=== PATIENT | male | born 1985 | race Caucasian/White ===

== ENCOUNTER 2017-10-31 12:34 | Inpatient (IN) | payer OTHER ==
[~2017-10-31] VITALS: Ht 177.8 cm; Wt 82.3 kg
[2017-10-31 13:50] VITALS: BP 145/63
[2017-10-31 14:09] VITALS: BP 145/63
[2017-10-31 14:54] LABS: BASO % 0.3 % (0.0-1.0); EOS # 0.2 10*3/uL (0.0-0.4); EOS % 2.5 % (1.0-4.0); HEMATOCRIT 38.3 % (42.0-52.0); HEMOGLOBIN 13.3 g/dl (14.0-18.0); LYMPH # 2.5 10*3/uL (1.3-4.4); LYMPH % 25.7 % (27.0-41.0); MEAN CELL VOLUME 86.3 fl (80.0-94.0); MEAN CORPUSCULAR HGB CONC 34.7 g/dl (33.0-37.0); MEAN PLATELET VOLUME 8.7 fl (9.6-12.3); MONO # 0.7 10*3/uL (0.1-1.0); MONO % 7.1 % (3.0-9.0); NEUT # 6.3 10*3/uL (2.3-7.9); NEUT % 64.2 % (47.0-73.0); PLATELET COUNT AUTOMATED 264 10*3/uL (130-400); RED BLOOD COUNT 4.44 10*6/uL (4.50-5.90); RED CELL DISTRI WIDTH 13.2 % (0-14.5); WHITE BLOOD COUNT 9.7 10*3/uL (4.8-10.8)
[2017-10-31 15:08] LABS: ALBUMIN 3.5 gm/dl (3.1-4.5); ALKALINE PHOSPHATASE 61 U/L (45-117); BUN 12 mg/dl (7-24); CHLORIDE 107 mmol/L (98-107); CREATININE 0.74 mg/dL (0.70-1.30); POTASSIUM 4.2 mmol/L (3.5-5.1); SGOT/AST 31 IU/L (3-35); SGPT/ALT 67 U/L (12-78); SODIUM 139 mmol/L (136-145); TOTAL PROTEIN 6.9 gm/dL (6.4-8.2)
[2017-10-31 15:14] LABS: ETHYL ALCOHOL < 3.0 mg/dl (<3)
[2017-10-31 15:26] LABS: BILIRUBIN NEGATIVE (NEGATIVE); BLOOD NEGATIVE (NEGATIVE); CLARITY SL CLOUDY (CLEAR); COLOR YELLOW (YELLOW); GLUCOSE NEGATIVE (NEGATIVE); KETONE NEGATIVE (NEGATIVE); LEUKO ESTERASE NEGATIVE (NEGATIVE); NITRITE NEGATIVE (NEGATIVE); PH 5.5 (5.0-9.0); SPECIFIC GRAVITY >= 1.030 (1.005-1.030); UROBILINOGEN 0.2 E.U./dl (0.2-1.0)
[2017-10-31 15:35] LABS: URINE AMPHETAMINES < 1000 (1000ng/ml); URINE BARBITURATES < 200 (200ng/ml); URINE BENZODIAZEPINES < 200 (200ng/ml); URINE CANNABINOIDS (THC) > 50 (50ng/ml); URINE COCAINE > 300 (300ng/ml); URINE METHADONE < 300 (300ng/ml); URINE OPIATES > 300 (300ng/ml)
[2017-10-31 15:37] LABS: BACTERIA TRACE; MUCOUS TRACE
[2017-10-31 15:38] LABS: URINE PHENCYCLIDINE < 25 (25ng/ml)
[2017-10-31 16:00] VITALS: BP 125/66
[2017-10-31 20:00] VITALS: BP 122/68
[2017-10-31 23:50] VITALS: BP 135/77
[2017-11-01 03:54] VITALS: BP 128/86
[2017-11-01 08:00] VITALS: BP 134/82
[2017-11-01 12:00] VITALS: BP 120/70
[2017-11-01 16:00] VITALS: BP 127/64
[2017-11-01 20:00] VITALS: BP 143/77
[2017-11-02] VITALS: BP 121/71
[2017-11-02 08:00] VITALS: BP 117/58
[2017-11-02 12:00] VITALS: BP 128/80
[2017-11-02 16:00] VITALS: BP 124/76
[2017-11-02 20:47] VITALS: BP 119/66
[2017-11-03] VITALS: BP 133/82
[2017-11-03 07:29] LABS: BASO # 0.1 10*3/uL (0.0-0.1); BASO % 0.6 % (0.0-1.0); EOS # 0.3 10*3/uL (0.0-0.4); EOS % 3.7 % (1.0-4.0); HEMATOCRIT 45.3 % (42.0-52.0); HEMOGLOBIN 15.8 g/dl (14.0-18.0); LYMPH # 3.9 10*3/uL (1.3-4.4); LYMPH % 45.2 % (27.0-41.0); MEAN CORPUSCULAR HGB 29.6 pg (27.0-31.0); MEAN CORPUSCULAR HGB CONC 34.9 g/dl (33.0-37.0); MEAN PLATELET VOLUME 8.8 fl (9.6-12.3); MONO # 0.6 10*3/uL (0.1-1.0); MONO % 7.2 % (3.0-9.0); NEUT # 3.7 10*3/uL (2.3-7.9); NEUT % 43.1 % (47.0-73.0); PLATELET COUNT AUTOMATED 289 10*3/uL (130-400); RED BLOOD COUNT 5.33 10*6/uL (4.50-5.90); RED CELL DISTRI WIDTH 13.2 % (0-14.5); WHITE BLOOD COUNT 8.6 10*3/uL (4.8-10.8)
[2017-11-03 07:54] LABS: CREATININE 1.07 mg/dL (0.70-1.30)
[2017-11-03 08:00] VITALS: BP 132/80
[2017-11-03] MEDS ORDERED: ZOFRAN 4 MG ED2 TAB PO (11:06)
[2017-11-03] MEDS ORDERED: ATARAX,VISTARIL50 MG PO (11:06)
[2017-11-03] MEDS ORDERED: ROPINIROLE HYD0.5 MG PO (11:06)
== END 2017-11-03 12:19 | disposition home or self-care (01) | DRG 897 ==
LOC: 4E 12:34
PROVIDERS: Family Medicine; Internal Medicine
DX: F11.23 Opioid dependence with withdrawal (principal); D64.9 Anemia, unspecified; F14.10 Cocaine abuse, uncomplicated; F12.10 Cannabis abuse, uncomplicated; Z96.641 Presence of right artificial hip joint; F17.210 Nicotine dependence, cigarettes, uncomplicated; R73.9 Hyperglycemia, unspecified; F41.9 Anxiety disorder, unspecified; Z71.6 Tobacco abuse counseling